=== PATIENT | female | born 1950 | race Caucasian/White ===

== ENCOUNTER 2020-02-24 16:52 | Inpatient (IN) | payer OTHER, MEDICARE ==
[~2020-02-24] VITALS: Ht 162.6 cm; Wt 70.3 kg
[2020-02-24 17:14] VITALS: BP 139/89
[2020-02-24] MEDS ORDERED: METFORMIN HCL500 M3 PO (18:12)
[2020-02-24] MEDS ORDERED: CELEXA 20 MG TA20 MG PO (18:12)
[2020-02-24] MEDS ORDERED: OMEPRAZOLE40 MG PO (18:13)
[2020-02-24] MEDS ORDERED: PRAVASTATIN SOD40 MG PO (18:13)
[2020-02-24] MEDS ORDERED: SINGULAIR 10 MG10 M1 PO (18:13)
[2020-02-24] MEDS ORDERED: SYMBICORT160 MCG/4. INH (18:14)
[2020-02-24] MEDS ORDERED: GLUCOTROL5 MG PO (18:14)
[2020-02-24] MEDS ORDERED: JARDIANCE10 MG PO (18:15)
[2020-02-24] MEDS ORDERED: BREO ELLIPTA 21 EACH INH (18:15)
[2020-02-24] MEDS ORDERED: PROAIR RESPICL90 MCG INH (18:16)
[2020-02-24] MEDS ORDERED: ZYRTEC10 MG PO (18:16)
[2020-02-24 19:19] LABS: ABSOLUTE NEUTROPHILS 4.4 thou/uL (1.4-8.2); BASOPHILS 0.1 % (0.0-2.0); HEMATOCRIT 32.1 % (37.0-47.0); HEMOGLOBIN 10.6 gm/dL (12.0-15.0); LYMPHOCYTES 9.7 % (24.0-44.0); MCH 24.7 pg (26.0-34.0); MCHC 32.9 g/dL (28.0-37.0); MCV 74.9 fL (80.0-100.0); MONOCYTES 7.3 % (1.0-8.0); PLATELET COUNT 224 thou/uL (150-400); POLYS 82.9 % (36.0-66.0); RBC 4.28 mil/uL (4.20-5.00); RDW 14.8 % (10.5-14.5); WBC 5.3 thou/uL (4.0-11.0)
[2020-02-24 19:41] LABS: ANION GAP 14 mmol/L (7-16); BUN 17 mg/dL (7-18); CALCIUM 9.4 mg/dL (8.5-10.1); CHLORIDE 98 mmol/L (98-107); CO2 21 mmol/L (21-32); CREATININE 1.4 mg/dL (0.6-1.0); GLUCOSE 335 mg/dL (74-106); POTASSIUM 3.4 mmol/L (3.5-5.1); SODIUM 133 mmol/L (136-145)
[2020-02-24 19:46] LABS: DIRECT BILIRUBIN < 0.1 mg/dL (<0.1-0.2); SGOT 25 U/L (15-37); SGPT 22 U/L (30-65); TOTAL BILIRUBIN 0.3 mg/dL (0.2-1.0); TOTAL PROTEIN 7.1 g/dL (6.4-8.2); TROPONIN-I <0.06 ng/mL (<0.06)
--- NOTE | 2020-02-25 01:40 | NUR ---
Pharmacy contacted again about zithromax dose.
[2020-02-25 04:32] LABS: CALCIUM 8.6 mg/dL (8.5-10.1); CREATININE 1.2 mg/dL (0.6-1.0); MAGNESIUM 1.8 mg/dL (1.8-2.4); POTASSIUM 3.1 mmol/L (3.5-5.1)
[2020-02-25 04:48] LABS: HEMATOCRIT 28.5 % (37.0-47.0); HEMOGLOBIN 9.4 gm/dL (12.0-15.0); MCH 24.5 pg (26.0-34.0); MCV 74.4 fL (80.0-100.0); RBC 3.83 mil/uL (4.20-5.00); RDW 14.8 % (10.5-14.5); WBC 4.3 thou/uL (4.0-11.0)
--- NOTE | 2020-02-25 07:38 | EKG ---
[facility] [place] [address] ELECTROCARDIOGRAM REPORT Name: RAOUL PHILLIPS Room #: 170-10 ADM IN M.R.#: [id number] Admission: 02/24/20 Attend Phys: Kenya Otto MD Discharge: Date of : 48 Report #: [id number] THIS REPORT FOR: cc: Baron Flannery MD, Stanley P. MD Santiago, Patrick MD [facility] ~ THIS REPORT FOR: //name// [facility] ED Test Date: 2020-02-24 Test Time: 18:57:19 Pat Name: RAOUL PHILLIPS Department: Room: 170 Gender: F [employer]: no : 1950 Requested By: Man Licona Order Number: [id number] MD: Hesham Middleton Measurements Intervals [place] Rate: 71 P: 49 TX: 154 QRS: -14 QRSD: 103 T: 33 QT: 398 QTc: 433 Interpretive Statements Sinus rhythm Baseline wander in lead(s) V2,V3 No previous ECG available for comparison Electronically Signed On 02-25-2020 7:38:16 WEED CONTROLLER by Hesham Middleton [email or web address] <ELECTRONICALLY SIGNED> By: Hesham Middleton MD, FACC 02/25/20 0738 56 56 Hesham Middleton MD, [facility] /EPI
[2020-02-25 09:00] VITALS: BP 126/67
[2020-02-25 18:14] VITALS: BP 120/64
[2020-02-25 18:32] VITALS: BP 100/55
[2020-02-25 19:42] VITALS: BP 116/63
[2020-02-25] MEDS ORDERED: BREO ELLIPTA 21 EACH EA. EYE (20:10)
[2020-02-25] MEDS ORDERED: LOTEMAX5 ML EA. EYE (20:12)
[2020-02-26 00:06] LABS: GLYCOHEMOGLOBIN (HGB A1C) 8.3 % (4.8-5.6)
[2020-02-26 01:20] VITALS: BP 114/53
--- NOTE | 2020-02-26 03:49 | NUR ---
PT admitted from ER at change of shift vss afebrile. SA-SB on monitor 40's -50's. Notifed Will Simon [employer]. No orders given since she is asymptomatic. Will continue to monitor pt for changes. Melatonin and tylenol given to help her get comfortable and go to sleep. SCDs on. Pt diminished and unlobored on RA. ivf's and abx started as ordered.
[2020-02-26 04:26] VITALS: BP 129/60
[2020-02-26 08:07] VITALS: BP 114/62
--- NOTE | 2020-02-26 09:41 | NUR ---
RD consult received. COVID+. Able to call and interview pt over phone. States appetite down for few weeks and lost about 5 lb. Tolerated breakfast this am, just didn't like food choices. Has a menu and instructed on how to order from alternative selections. Refusing any oral supplements. BG elevated with A1C 8.3 and also on steroid. Continue carb control diet. Low nutrition risk at this time
[2020-02-26 11:35] LABS: HEMATOCRIT 29.6 % (37.0-47.0); HEMOGLOBIN 9.5 gm/dL (12.0-15.0); MCH 24.3 pg (26.0-34.0); MCHC 32.2 g/dL (28.0-37.0); MCV 75.5 fL (80.0-100.0); RBC 3.92 mil/uL (4.20-5.00); RDW 15.2 % (10.5-14.5); WBC 5.6 thou/uL (4.0-11.0)
[2020-02-26 11:52] LABS: CALCIUM 8.7 mg/dL (8.5-10.1); CREATININE 1.2 mg/dL (0.6-1.0); POTASSIUM 3.3 mmol/L (3.5-5.1)
[2020-02-26 12:07] VITALS: BP 108/58
[2020-02-26 15:40] VITALS: BP 111/60
--- NOTE | 2020-02-26 15:43 | NUR ---
INITIAL ASSESSMENT: Received consult for discharge planning. SW reviewed chart and spoke with nursing and attending physician. Pt was admitted from home due to pneumonia. Pt placed in Enhanced Isolation due to COVID-19. Pt is afebrile and not requiring O2. Pt is on IV abx. SW spoke with pt via phone. Introduced role of SW. Pt appears to be alert/orientated x 4. Pt reports she lives at home with her . Prior to admission, pt was independent with ADLs. No use of DME. No hx of services or post-acute placement. Pt's PCP is Dr. Baron Flannery. Pt's goal is to return home when medically stable. SW is following to assist as needed with discharge planning.
--- NOTE | 2020-02-26 16:30 | NUR ---
Patient has been resting today. She is progressing towards plan of care goals as evidenced by continued room air status, tolerance to acitivity, no shortness of air. She expressed she still feels weak with no energy, but is feeling better. She also expressed she was able to cough some thick greenish sputum up and made her feel better. She is intermittently tearful. Nurse to continue to monitor patient status.
[2020-02-26 19:40] VITALS: BP 117/59
--- NOTE | 2020-02-26 20:58 | NUR ---
PT RECEIVING RESPIRATORY TREATMENT WHILE SITTING IN BED. PT AMBULATED TO BATHROOM, SOA WITH EXERTION. BLUNTED AFFECT, UNSTEADY GAIT. PT CALLS FOR ASSISTANCE. LUNGS WHEEZES AND CRACKLES. BED ALARM ON.
[2020-02-27 04:51] VITALS: BP 109/58
[2020-02-27 09:23] VITALS: BP 122/67
[2020-02-27 12:25] VITALS: BP 117/64
--- NOTE | 2020-02-27 15:43 | NUR ---
SW reviewed chart and spoke with nursing and attending physician. Pt remains in Enhanced Isolation due to COVID-19. Pt is afebrile and not requiring O2. Pt is on IV abx. Discharge home is anticipated for tomorrow. No discharge needs identified at this time. [facility] is following to assist as needed with discharge planning.
[2020-02-27 17:41] VITALS: BP 122/94
[2020-02-27 19:47] VITALS: BP 134/66
--- NOTE | 2020-02-27 23:59 | NUR ---
PT WATCHING TV, RESTLESS IN BED. PT STATED SHE IS LOOKING FORWARD TO DC IN AM. PT STATED SHE IS TIRED OF BEING SICK.AND THEN APOLIGIZED FOR COMPLAINING. PT ENCOURAGED TO EXPRESS HER FRUSTRATIONS. IVF INTACT. PROVIDED HS SNACK.
[2020-02-28 04:25] VITALS: BP 137/67
[2020-02-28 06:46] LABS: CALCIUM 8.1 mg/dL (8.5-10.1); CREATININE 0.9 mg/dL (0.6-1.0); MAGNESIUM 1.8 mg/dL (1.8-2.4)
[2020-02-28 07:28] VITALS: BP 146/66
[2020-02-28 07:32] LABS: POTASSIUM 2.8 mmol/L (3.5-5.1)
[2020-02-28 11:14] VITALS: BP 146/66
--- NOTE | 2020-02-28 11:15 | NUR ---
CM REVIEWED CHART AND SPOKE WITH ATTENDING. PT IS DISCHARGING TODAY WITH RECOMMENDATION OF HOME HEALTH. CM CONTACTED PT IN HER ROOM AND SHE STATES SHE DOES NOT WANT HH AND REFUSES. CM DISCUSSED BENEFITS OF HH AND RECOMMENDATION BUT SHE REPORTS SHE DOES NOT WANT IT. PT IS NOT ON ANY OXYGEN. PT STATES HER WILL PICK HER UP AT DISCHARGE. CASE CLOSED.
[2020-02-28 11:35] VITALS: BP 135/71
[2020-02-28] MEDS ORDERED: FLORANEX GRANU1 EACH PO (13:20)
[2020-02-28] MEDS ORDERED: CEPACOL SORE T1 EAC7 PO (13:20)
[2020-02-28] MEDS ORDERED: CEFUROXIME500 MG PO (13:20)
[2020-02-28] MEDS ORDERED: PREDNISONE 20 M20 M1 PO (13:20)
[2020-02-28] MEDS ORDERED: MELATONIN5 M1 PO (13:20)
[2020-02-28] MEDS ORDERED: MUCINEX600 MG PO (13:20)
[2020-02-28] MEDS ORDERED: ACETAMINOPHEN325 M1 PO (13:20)
[2020-02-28] MEDS ORDERED: VITAMIN D325 MC1 PO (13:20)
[2020-02-28] MEDS ORDERED: CENTRUM SILVER1 EAC4 PO (13:20)
[2020-02-28] MEDS ORDERED: ZINC SULFATE 2220 MG PO (13:20)
[2020-02-28] MEDS ORDERED: KLOR-CON 1010 MEQ PO (13:23)
[2020-02-28 15:19] VITALS: BP 131/62
--- NOTE | 2020-02-28 18:11 | NUR ---
RN ASSUMED PT'S CARE AT 0700AM, PT IS A&OX3, PT IS CONTINUING IV ABX , PT'S VS ARE STABLE, PT DOES NOT HAVE SOB AND FEVER, PT HAD 40MEQ KCL IV FOR POTASSIUM 2.8, RN RECEIVED DR YU TO DC PT TO HOME WITH HOME HEALTH , BUT PT REFUSED HOME HEALTH, RN HAD GIVING PT AND PT'S ( ON THE PHONE) ABOUT DISCHARGE TEACHING, THEY UNDERSTAND WELL. 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
== END 2020-02-28 17:05 | disposition home or self-care (01) | DRG 177 ==
LOC: ER 16:52 → EROBS 22:50 → 3W 22:50
PROVIDERS: Emergency Medicine; Nurse Practitioner Family; ADMIT Internal Medicine; ATTEND Internal Medicine
DX: U07.1 COVID-19 (principal); J12.9 Viral pneumonia, unspecified; N17.9 Acute kidney failure, unspecified; E78.5 Hyperlipidemia, unspecified; F41.9 Anxiety disorder, unspecified; J45.909 Unspecified asthma, uncomplicated; K21.9 Gastro-esophageal reflux disease without esophagitis; F32.9 Major depressive disorder, single episode, unspecified; Z96.641 Presence of right artificial hip joint; J02.9 Acute pharyngitis, unspecified; E11.65 Type 2 diabetes mellitus with hyperglycemia; Z79.899 Other long term (current) drug therapy; Z90.49 Acquired absence of other specified parts of digestive tract; Z28.21 Immunization not carried out because of patient refusal
CPT/HCPCS: 10879